=== PATIENT | female | born 2000 | race American Indian/Alaskan Native ===

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

== ENCOUNTER 2022-07-20 10:26 | Emergency (ER) | payer MEDICAID | END 2022-07-20 11:35 | disposition home or self-care (01) | LOC: DL.ED 10:26 | DX: M54.41 Lumbago with sciatica, right side (principal); M62.830 Muscle spasm of back; E66.9 Obesity, unspecified; Z68.42 Body mass index [BMI] 45.0-49.9, adult; X50.0XXA Overexertion from strenuous movement or load, initial encounter | CPT/HCPCS: 72100; 81003; 81025; 99283; 99284 ==

== ENCOUNTER 2022-08-30 07:36 | Emergency (ER) | payer OTHER, MEDICAID ==
[2022-08-30] MEDS: Iopamidol 612 MG/ML 50 ML SDV IVPUSH ONE (07:00)
[2022-08-30 07:14] LABS: ANION GAP 17.1 mEq/L (7-13); CHLORIDE,CL 109 mmol/L (98-107); SODIUM,NA 146 mmol/L (136-145)
[2022-08-30 07:15] LABS: ACETAMINOPHEN 0 ug/mL (10-30 (Therapeutic)); ESTIMATED GFR 107 mL/min (>=60)
[~2022-08-30 07:36] MED LIST changes: +HYDROmorphone 1 MG/ML Syringe IVPUSH ONE; -Naloxone 2 MG/2 ML Syringe IVPUSH ONE; +Ondansetron 4 MG/2 ML SDV IVPUSH ONE; +Ondansetron 4 MG/2 ML SDV ONE
== END 2022-08-30 08:14 | disposition home or self-care (01) ==
LOC: DL.ED 07:36
DX: S70.212A Abrasion, left hip, initial encounter (principal); F10.929 Alcohol use, unspecified with intoxication, unspecified; M25.512 Pain in left shoulder; E66.9 Obesity, unspecified; Z79.899 Other long term (current) drug therapy; V59.9XXA Occupant (driver) (passenger) of pick-up truck or van injured in unspecified traffic accident, initial encounter; Y92.410 Unspecified street and highway as the place of occurrence of the external cause
CPT/HCPCS: 36415; 70450; 71260; 72125; 74177; 80053; 80143; 80179; 80307; 83605; 84703; 85025; 99284; Q9967

== ENCOUNTER 2023-05-11 20:25 | Emergency (ER) | payer MEDICAID ==
[2023-05-11] MEDS ORDERED: Sodium Chloride 0.9% 1,000 ML IV ONE (20:44)
[2023-05-11] MEDS ORDERED: Ondansetron 4 MG/2 ML SDV IVPUSH ONE (20:44)
[2023-05-11] MEDS ORDERED: Ketorolac 30 MG/ML SDV IVPUSH ONE (20:44)
[2023-05-11] MEDS ORDERED: diphenhydrAMINE 50 MG/ML SDV IVPUSH ONE (20:44)
[2023-05-11 21:03] LABS: BASOPHILS PERCENT AUTO 0.1 % (0.0-1.0); EOSINOPHILS PERCENT AUTO 0.7 % (1.0-3.0); LYMPHOCYTES PERCENT AUTO 24.6 % (20.5-50.1); MEAN CORPUSCULAR HEMOGLOBIN 26.4 pg (27.0-34.0); MEAN CORPUSCULAR HGB CONC 32.5 g/dL (33.0-35.0); MEAN CORPUSCULAR VOLUME 81.1 fL (80-100); MONOCYTES PERCENT AUTO 4.4 % (2-8); NEUTROPHILS PERCENT AUTO 70.2 % (42.2-75.2); PLATELET COUNT,PLT 450 10^3/uL (150-450); RED BLOOD CELL COUNT 4.93 10^6/uL (4.2-5.4); WHITE BLOOD CELL COUNT,WBC 14.2 10^3/uL (5.0-10.0)
[2023-05-11 21:21] LABS: HCG QUALITATIVE,SERUM NEGATIVE (NEGATIVE)
[2023-05-11 21:24] LABS: ALANINE AMINOTRANSFERASE,ALT 28 U/L (14-59); ALKALINE PHOSPHATASE 121 U/L (46-116); ANION GAP 12.6 mEq/L (7-13); ASPARTATE AMNIOTRANSFERASE,AST 15 U/L (15-37); BILIRUBIN TOTAL 0.7 mg/dL (0.2-1.0); BLOOD UREA NITROGEN,BUN 11 mg/dL (7-18); BUN/CREATININE RATIO 10.6 (No establ ref range); CALCIUM 8.7 mg/dL (8.5-10.1); CARBON DIOXIDE,CO2 28 mmol/L (21-32); CHLORIDE,CL 102 mmol/L (98-107); CREATININE 1.04 mg/dL (0.55-1.02); EST CRCL DRUG DOSING (CG) 86.32 mL/min; GLUCOSE RANDOM 108 mg/dL (70-99); POTASSIUM,K 3.6 mmol/L (3.5-5.1); PROTEIN TOTAL,TP 7.5 g/dL (6.4-8.2); SODIUM,NA 139 mmol/L (136-145)
[2023-05-11 21:35] LABS: A/G RATIO 0.67; ESTIMATED GFR 78 mL/min (>=60); ETHANOL BLOOD MEDICAL < 3 mg/dL (0)
[2023-05-11 21:41] LABS: CORONAVIRUS COVID-19 NAA NEGATIVE (NEGATIVE); INFLUENZA A NAA NEGATIVE (NEGATIVE); INFLUENZA B NAA NEGATIVE (NEGATIVE); RESPIRATORY SYNCYTIAL VIR NAA NEGATIVE (NEGATIVE)
[2023-05-11 22:51] LABS: AMPHETAMINES,URINE NEGATIVE (NEGATIVE); BARBITURATES,URINE NEGATIVE (NEGATIVE); BENZODIAZEPINE,URINE NEGATIVE (NEGATIVE); MDMA (ECSTASY), URINE NEGATIVE (NEGATIVE); METHADONE,URINE NEGATIVE (NEGATIVE); METHAMPHETAMINES,URINE NEGATIVE (NEGATIVE); OPIATES,URINE NEGATIVE (NEGATIVE); OXYCODONE,URINE NEGATIVE (NEGATIVE); PHENCYCLIDINE,URINE NEGATIVE (NEGATIVE); TCA,URINE NEGATIVE (NEGATIVE)
[2023-05-11 22:54] LABS: APPEARANCE,URINE SLIGHTLY CLOUDY (CLEAR); BILIRUBIN,URINE NEGATIVE (NEGATIVE); COLOR,URINE YELLOW (YELLOW); GLUCOSE,URINE NEGATIVE (NEGATIVE); KETONES,URINE NEGATIVE (NEGATIVE); LEUKOCYTE ESTERASE,URINE SMALL (NEGATIVE); NITRITE,URINE NEGATIVE (NEGATIVE); OCCULT BLOOD,URINE LARGE (NEGATIVE); PROTEIN,URINE NEGATIVE (NEGATIVE); UROBILINOGEN,URINE 0.2 mg/dL (0.2-1.0)
[2023-05-11 23:13] LABS: BACTERIA,URINE MODERATE /HPF (0-FEW/HPF); EPITHELIAL CELLS,URINE MODERATE /HPF (NOT SEEN); WBC,URINE 40-50 /HPF (0-5/HPF)
[2023-05-11] MEDS ORDERED: metroNIDAZOLE 250 MG Tab PO ONE (23:40)
== END 2023-05-12 00:01 | disposition home or self-care (01) ==
LOC: DL.ED 20:25
DX: G43.909 Migraine, unspecified, not intractable, without status migrainosus (principal); I10 Essential (primary) hypertension; F17.210 Nicotine dependence, cigarettes, uncomplicated; E66.9 Obesity, unspecified; Z68.42 Body mass index [BMI] 45.0-49.9, adult; Z20.822 Contact with and (suspected) exposure to COVID-19; Z86.16 Personal history of COVID-19
CPT/HCPCS: 0241U; 36415; 80053; 80305-QW; 80307; 81001; 84703; 85025; 87086; 87088; 87186; 96374; 96375; 99283-25; A9270-GY; J1200; J1885; J2405; J7030

== ENCOUNTER 2023-05-20 19:11 | Emergency (ER) | payer MEDICAID ==
[2023-05-20] MEDS ORDERED: Sodium Chloride 0.9% 10 ML Syringe FLUSH PRN (19:24)
[2023-05-20] MEDS ORDERED: Sodium Chloride 0.9% 1,000 ML IV ONE ×2 (19:53→20:43)
[2023-05-20 20:07] LABS: BASOPHILS PERCENT AUTO 0.1 % (0.0-1.0); EOSINOPHILS PERCENT AUTO 0.8 % (1.0-3.0); HEMATOCRIT 41.9 % (37.0-47.0); HEMOGLOBIN 13.5 g/dL (12.0-16.0); LYMPHOCYTES PERCENT AUTO 20.1 % (20.5-50.1); MEAN CORPUSCULAR HEMOGLOBIN 26.4 pg (27.0-34.0); MEAN CORPUSCULAR HGB CONC 32.2 g/dL (33.0-35.0); MEAN CORPUSCULAR VOLUME 81.8 fL (80-100); MONOCYTES PERCENT AUTO 6.2 % (2-8); NEUTROPHILS PERCENT AUTO 72.8 % (42.2-75.2); PLATELET COUNT,PLT 486 10^3/uL (150-450); RED BLOOD CELL COUNT 5.12 10^6/uL (4.2-5.4); WHITE BLOOD CELL COUNT,WBC 15.5 10^3/uL (5.0-10.0)
[2023-05-20 20:25] LABS: A/G RATIO 0.8; ALANINE AMINOTRANSFERASE,ALT 44 U/L (14-59); ALBUMIN 3.4 g/dL (3.4-5.0); ALKALINE PHOSPHATASE 123 U/L (46-116); AMYLASE 44 U/L (25-115); ANION GAP 17.9 mEq/L (7-13); ASPARTATE AMNIOTRANSFERASE,AST 33 U/L (15-37); BILIRUBIN TOTAL 0.4 mg/dL (0.2-1.0); BLOOD UREA NITROGEN,BUN 13 mg/dL (7-18); BUN/CREATININE RATIO 9.5 (No establ ref range); C-REACTIVE PROTEIN 2.05 ng/dL (<=0.50); CALCIUM 8.5 mg/dL (8.5-10.1); CARBON DIOXIDE,CO2 25 mmol/L (21-32); CHLORIDE,CL 101 mmol/L (98-107); CREATININE 1.37 mg/dL (0.55-1.02); EST CRCL DRUG DOSING (CG) 64.35 mL/min; GLUCOSE RANDOM 94 mg/dL (70-99); LIPASE 23 U/L (16-77); MAGNESIUM 1.8 mg/dL (1.8-2.4); POTASSIUM,K 3.9 mmol/L (3.5-5.1); PROTEIN TOTAL,TP 7.8 g/dL (6.4-8.2); SODIUM,NA 140 mmol/L (136-145)
[2023-05-20 20:27] LABS: ACETAMINOPHEN 0 ug/mL (10-30 (Therapeutic)); ESTIMATED GFR 56 mL/min (>=60); ETHANOL BLOOD MEDICAL < 3 mg/dL (0)
[2023-05-20 20:30] LABS: PROTHROMBIN TIME 10.5 SEC (9.0-12.0); PTT,PARTIAL THROMBOPLSTIN TIME 26.5 SEC (22.0-34.0)
[2023-05-20 20:32] LABS: LACTIC ACID 2.1 mmol/L (0.4-2.0)
[2023-05-20] MEDS ORDERED: Ondansetron 4 MG/2 ML SDV IVPUSH ONE (20:43)
[2023-05-20 21:29] LABS: APPEARANCE,URINE CLEAR (CLEAR); BILIRUBIN,URINE NEGATIVE (NEGATIVE); COLOR,URINE YELLOW (YELLOW); GLUCOSE,URINE NEGATIVE (NEGATIVE); KETONES,URINE NEGATIVE (NEGATIVE); LEUKOCYTE ESTERASE,URINE NEGATIVE (NEGATIVE); NITRITE,URINE NEGATIVE (NEGATIVE); OCCULT BLOOD,URINE SMALL (NEGATIVE); PH,URINE 6.5 (5.0-9.0); PROTEIN,URINE 100 (NEGATIVE); UROBILINOGEN,URINE 0.2 mg/dL (0.2-1.0)
[2023-05-20 21:50] LABS: METHAMPHETAMINES,URINE NEGATIVE (NEGATIVE)
[2023-05-20 21:51] LABS: AMPHETAMINES,URINE NEGATIVE (NEGATIVE); BARBITURATES,URINE NEGATIVE (NEGATIVE); BENZODIAZEPINE,URINE NEGATIVE (NEGATIVE); MDMA (ECSTASY), URINE NEGATIVE (NEGATIVE); METHADONE,URINE NEGATIVE (NEGATIVE); OPIATES,URINE NEGATIVE (NEGATIVE); OXYCODONE,URINE NEGATIVE (NEGATIVE); PHENCYCLIDINE,URINE NEGATIVE (NEGATIVE); TCA,URINE NEGATIVE (NEGATIVE)
[2023-05-20 22:02] LABS: BACTERIA,URINE MODERATE /HPF (0-FEW/HPF); EPITHELIAL CELLS,URINE FEW /HPF (NOT SEEN); WBC,URINE 20-30 /HPF (0-5/HPF)
[2023-05-20] MEDS ORDERED: hydrOXYzine HCl 25 MG Tab PO ONE (22:04)
== END 2023-05-20 22:18 | disposition home or self-care (01) ==
LOC: DL.ED 19:11
DX: F10.239 Alcohol dependence with withdrawal, unspecified (principal); I10 Essential (primary) hypertension; E66.9 Obesity, unspecified; Y90.8 Blood alcohol level of 240 mg/100 ml or more; Z68.42 Body mass index [BMI] 45.0-49.9, adult
CPT/HCPCS: 36415; 71045; 80053; 80143; 80179; 80305-QW; 80307; 81001; 81025; 82150; 83605; 83690; 83735; 84145; 84484; 85025; 85610; 85730; 86140; 93005; 93010; 96361; 96374; 99284; 99285-25; A9270-GY; J2405; J3490; J7030

== ENCOUNTER 2023-11-18 17:07 | Emergency (ER) | payer MEDICAID ==
[2023-11-18] MEDS: Lidocaine 2% 20 ML MDV ONE (17:43)
== END 2023-11-18 17:53 | disposition home or self-care (01) ==
LOC: DL.ED 17:07
DX: G43.009 Migraine without aura, not intractable, without status migrainosus (principal); I10 Essential (primary) hypertension; Z79.899 Other long term (current) drug therapy
CPT/HCPCS: 99283; J3490

== ENCOUNTER 2024-05-20 16:40 | Emergency (ER) | payer MEDICAID | END 2024-05-20 17:16 | disposition home or self-care (01) | LOC: DL.ED 16:40 | DX: S09.90XA Unspecified injury of head, initial encounter (principal); I10 Essential (primary) hypertension; E66.9 Obesity, unspecified; Z79.899 Other long term (current) drug therapy; Y04.0XXA Assault by unarmed brawl or fight, initial encounter | CPT/HCPCS: 99283; 99284 ==

== ENCOUNTER 2025-04-09 15:38 | Emergency (ER) | payer MEDICAID, OTHER ==
[2025-04-09] MEDS: Ketorolac 30 MG/ML SDV IVPUSH ONE (15:54)
[2025-04-09] MEDS: Ondansetron 4 MG/2 ML SDV IVPUSH ONE (15:55)
[2025-04-09] MEDS: Magnesium Sulfat/D5W 1GM/100ML 1 GM in Premix Bag 1 BAG IV ONE (16:16)
== END 2025-04-09 18:14 | disposition home or self-care (01) ==
LOC: DL.ED 15:38
DX: G43.009 Migraine without aura, not intractable, without status migrainosus (principal); I10 Essential (primary) hypertension; E66.9 Obesity, unspecified; Z79.899 Other long term (current) drug therapy; Z68.42 Body mass index [BMI] 45.0-49.9, adult
CPT/HCPCS: 96365; 96372; 96375; 99283; 99283-25; J1885; J2270; J2405; J3475; J7030